=== PATIENT | female | born 1940 | race Hispanic/Latino ===

== ENCOUNTER 2016-10-18 20:26 | Observation (INO) | payer MEDICARE ==
[2016-10-18 20:33] VITALS: BMI 24.4
[2016-10-18 21:05] LABS: BASO # 0.01 K/mm3 (0.0-2.0); BASO % 0.3 % (0.0-3.0); EOS # 0.2 (0.0-0.7); EOS % 3.9 % (1.5-5.0); GRAN # 1.99 (1.4-6.5); GRAN % 51.7 % (50.0-68.0); HEMOGLOBIN 12.9 gm/dL (12.0-16.0); LYMPH # 1.2 (1.2-3.4); LYMPH % 30.6 % (22.0-35.0); MEAN CELL VOLUME 91.9 fL (80.0-105.0); MEAN CORPUSCULAR HEMOGLOBIN 32.6 pg (25.0-35.0); MEAN CORPUSCULAR HGB CONC 35.4 g/dl (31.0-37.0); MEAN PLATELET VOLUME 11.6 fl (7.0-11.0); MONO # 0.5 (0.1-0.6); MONO % 13.5 % (1.0-6.0); PLATELET COUNT 78 10^3/uL (120.0-450.0); RBC 3.96 10^6/uL (3.5-6.1); RED CELL DISTRIBUTION WIDTH 12.8 % (11.5-14.5); WHITE BLOOD COUNT 3.9 10^3/ul (4.5-11.0)
[2016-10-18 21:06] LABS: VENOUS BLOOD GAS BASE EXCESS -0.6 mmol/L (0.0-2.0); VENOUS BLOOD GAS PO2 142 mm/Hg (30-55); VENOUS BLOOD PH 7.43 (7.32-7.43)
[2016-10-18 21:44] LABS: ALB/GLOB RATIO 1.6 (1.1-1.8); ALBUMIN 3.4 g/dL (3.0-4.8); ALT/SGPT 40 U/L (7-56); AST/SGOT 24 U/L (15-39); BLOOD UREA NITROGEN 13 mg/dL (7-21); CALCIUM 9.1 mg/dL (8.4-10.5); GFR AFRICAN-AMERICAN > 60; GFR NON-AFRICAN AMERICAN > 60
--- NOTE | 2016-10-18 21:44 | ED PDOC ---
Arrival/HPI - General Chief Complaint: Medical Clearance Time Seen by Provider: 10/18/16 20:29 Historian: Patient - History of Present Illness Narrative History of Present Illness (Text): 10/18/16 20:29 Leatha Rob is a 76 year old female who presents to the emergency department for evaluation of hypotension and generalized weakness. Patient does not endorse any other complaints. Denies fever, chills, headache, chest pain, shortness of breath, or any other complaints at this time. Past Medical History - Provider Review Nursing Documentation Reviewed: Yes - Cardiac Hx Pacemaker: No - Pulmonary Hx Respiratory Disorders: No - Neurological Hx Paralysis: No - HEENT Hx HEENT Disorder: No - Renal Hx Renal Disorder: No - Hematological/Oncological Hx Blood Transfusions: No Hx Blood Transfusion Reaction: No Hx Cancer: Yes (breast) - Integumentary Hx Dermatological Disorder: No - Musculoskeletal/Rheumatological Hx Musculoskeletal Disorders: No - Gastrointestinal Hx Gastrointestinal Disorders: No - Genitourinary/Gynecological Hx Genitourinary Disorders: No - Psychiatric Hx Psychophysiologic Disorder: No Hx Substance Use: No - Surgical History Hx Mastectomy: Yes - Anesthesia Hx Anesthesia: Yes Hx Anesthesia Reactions: No Hx Malignant Hyperthermia: No Family/Social History - Physician Review Nursing Documentation Reviewed: Yes Family/Social History: No Known Family HX Smoking Status: Never Smoked Hx Alcohol Use: No Hx Substance Use: No Allergies/Home Meds Allergies/Adverse Reactions: Allergies No Known Allergies Allergy (Verified 01/14/16 08:39) Home Medications: Home Meds Medication Instructions Recorded Confirmed Dexamethasone 10 mg PO DAILY 01/14/16 10/18/16 Acyclovir [Zovirax] 200 mg PO DAILY 10/18/16 10/18/16 Lenalidomide [Revlimid] 5 mg PO DAILY 10/18/16 10/18/16 Review of Systems - Physician Review All systems were reviewed & negative as marked: Yes - Review of Systems Constitutional: Fatigue (generalized weakness ). absent: Fevers Respiratory: Normal. absent: SOB, Cough, Sputum Cardiovascular: Normal. absent: Chest Pain Gastrointestinal: absent: Abdominal Pain, Diarrhea, Nausea, Vomiting Genitourinary Female: absent: Dysuria Neurological: Normal. absent: Headache, Dizziness Physical Exam Vital Signs Reviewed: Yes Vital Signs Temp Pulse Resp BP Pulse Ox 10/19/16 02:00 79 14 127/82 99 10/19/16 01:52 98.5 F 71 19 139/72 10/19/16 00:15 84 16 162/85 H 100 10/18/16 23:37 82 16 133/75 100 10/18/16 22:59 76 14 134/70 100 10/18/16 20:34 97.8 F 80 20 124/78 99 Temperature: Afebrile Blood Pressure: Normal Pulse: Regular Respiratory Rate: Normal Appearance: Positive for: Well-Appearing, Non-Toxic, Comfortable Pain Distress: None Mental Status: Positive for: Alert and Oriented X 3 - Systems Exam Head: Present: Atraumatic, Normocephalic Pupils: Present: PERRL Conjunctiva: Present: Normal Mouth: Present: Moist Mucous Membranes Respiratory/Chest: Present: Clear to Auscultation, Good Air Exchange. No: Respiratory Distress, Accessory Muscle Use Cardiovascular: Present: Regular Rate and Rhythm, Normal S1, S2. No: Murmurs Abdomen: Present: Normal Bowel Sounds. No: Tenderness, Distention, Peritoneal Signs Upper Extremity: Present: Normal Inspection. No: Cyanosis, Edema Lower Extremity: Present: Normal Inspection. No: Edema Neurological: Present: GCS=15, CN II-XII Intact, Speech Normal, Motor Func Grossly Intact, Normal Sensory Function Skin: Present: Warm, Dry, Normal Color. No: Rashes Psychiatric: Present: Alert, Oriented x 3, Normal Insight, Normal Concentration Medical Decision Making ED Course and Treatment: 10/18/16 20:29 Impression: A 76 year old female who presents to the emergency department complaining of hypotension and weakness. Plan: -- EKG -- labs, Troponin -- Urinalysis -- Reassess and disposition Progress Notes: 10/18/16 20:41 EKG reviewed by me: Abbifib @ 81 bpm. 10/19/16 01:[address] Suarez who is aware and agrees with the plan to observe patient on telemetry for near-syncope. Accepts patient under her service. - Lab Interpretations Lab Results: 10/18/16 20:45 10/18/16 21:15 Lab Results 10/19/16 00:50: pO2 165 H, VBG pH 7.41, VBG pCO2 41.0, VBG HCO3 26.0, VBG Total CO2 27.3, VBG O2 Sat (Calc) 97.3 H, VBG Base Excess 1.2, VBG Potassium 4.0, Sodium 136.0, Chloride 108.0 H, Glucose 86, Lactate 1.6, FiO2 21.0, Venous Blood Potassium 4.0 10/18/16 21:15: Urine Color Yellow, Urine Appearance Clear, Urine pH 6.0, Ur Specific [place] 1.010, Urine Protein Negative, Urine Glucose (UA) Negative, Urine Ketones Negative, Urine Blood Small H, Urine Nitrate Negative, Urine Bilirubin Negative, Urine Urobilinogen 0.2, Ur Leukocyte Esterase Negative, Urine RBC 0 - 2, Urine WBC 0 - 2, Ur Epithelial Cells 0 - 2 10/18/16 21:15: Sodium 134, Chloride 104, Potassium 4.2, Carbon Dioxide 22, Anion Gap 12, BUN 13, Creatinine 0.7, Est GFR ( Amer) > 60, Est GFR (Non- Af Amer) > 60, Random Glucose 88, Calcium 9.1, Total Bilirubin 1.1, AST 24, ALT 40, Alkaline Phosphatase 55, Troponin I < 0.01, Total Protein 5.5 L, Albumin 3.4 , Globulin 2.1, Albumin/Globulin Ratio 1.6 10/18/16 20:45: pO2 142 H, VBG pH 7.43, VBG pCO2 35.0 L, VBG HCO3 23.2, VBG Total CO2 24.3, VBG O2 Sat (Calc) 96.8 H, VBG Base Excess -0.6 L, VBG Potassium 5.6 H, Sodium 129.0 L, Chloride 105.0, Glucose 108 H, Lactate 2.0, FiO2 21.0, Venous Blood Potassium 5.6 H 10/18/16 20:45: WBC 3.9 L, RBC 3.96, Hgb 12.9, Hct 36.4, MCV 91.9, MCH 32.6, MCHC 35.4, RDW 12.8, Plt Count 78 L, MPV 11.6 H, Gran % 51.7, Lymph % (Auto) 30.6, [place] % (Auto) 13.5 H, Eos % (Auto) 3.9, Baso % (Auto) 0.3, Gran # 1.99, Lymph # 1.2, [place] # 0.5, Eos # 0.2, Baso # 0.01 I have reviewed the lab results: Yes - RAD Interpretation Radiology Orders: 10/18/16 22:21 HEAD W/O CONTRAST [CT] Stat 10/19/16 00:50 CHEST PORTABLE [RAD] Stat - EKG Interpretation Interpreted by ED Physician: Yes Type: 12 lead EKG - Medication Orders Current Medication Orders: Discontinued Medications Acetaminophen (Tylenol 325mg Tab) 650 mg PO Q4H PRN PRN Reason: Pain, Mild (1-3) Dexamethasone (Decadron) 10 mg PO DAILY [facility] Last Admin: 10/19/16 09:31 Dose: 10 mg Lenalidomide [ Revlimid] 5 Mg ( Home Med) 5 mg PO DAILY [facility] Last Admin: 10/19/16 09:36 Dose: - Scribe Statement The provider has reviewed the documentation as recorded by the Wanda Cruz Provider Attestation: Provider Scribe Attestation: All medical record entries made by the Scribe were at my direction and personally dictated by me. I have reviewed the chart and agree that the record accurately reflects my personal performance of the history, physical exam, medical decision making, and the department course for this patient. I have also personally directed, reviewed, and agree with the discharge instructions and disposition. Disposition/Present on Arrival - Present on Arrival Any Indicators Present on Arrival: No History of DVT/PE: No History of Uncontrolled Diabetes: No Urinary Catheter: No History of Decub. Ulcer: No History Surgical Site Infection Following: None - Disposition Have Diagnosis and Disposition been Completed?: Yes Diagnosis: Near syncope Disposition: HOSPITALIZED Disposition Time: 01:00 Condition: FAIR
[2016-10-18 22:00] LABS: TROPONIN I < 0.01 ng/mL
[2016-10-18 22:27] LABS: URINE BILIRUBIN NEGATIVE (NEGATIVE); URINE BLOOD SMALL (NEGATIVE); URINE GLUCOSE (UA) NEGATIVE (NEGATIVE); URINE LEUKOCYTE ESTERASE NEGATIVE Leu/uL (NEGATIVE); URINE NITRATE NEGATIVE (NEGATIVE); URINE PROTEIN NEGATIVE mg/dL (<30 mg/dL); URINE UROBILINOGEN 0.2 E.U./dL (<1 E.U./dL)
[2016-10-18 22:38] LABS: URINE APPEARANCE CLEAR (CLEAR); URINE COLOR YELLOW (YELLOW)
[2016-10-18 22:54] LABS: URINE EPITHELIAL CELLS 0 - 2 /hpf (0-5); URINE RBC 0 - 2 /hpf (0-2); URINE WBC 0 - 2 /hpf (0-6)
--- NOTE | 2016-10-19 00:10 | CT ---
EXAM: CT Head Without Intravenous Contrast CLINICAL HISTORY: 76 years old, female; Signs and symptoms; Weakness, extremity TECHNIQUE: Axial computed tomography images of the head/brain without intravenous contrast. This CT exam was performed using one or more of the following dose reduction techniques: automated exposure control, adjustment of the mA and/or kV according to patient size, and/or use of iterative reconstruction technique. COMPARISON: No relevant prior studies available. FINDINGS: Brain: No acute intracranial hemorrhage. Age-appropriate periventricular white matter disease. No edema. Ventricles: Age-appropriate ventriculomegaly. Bones: No acute displaced fracture. Sinuses: Unremarkable as visualized. No acute sinusitis. Mastoid air cells: Unremarkable as visualized. No mastoid effusion. IMPRESSION: No acute intracranial hemorrhage, or suspicious mass effect.
[2016-10-19 01:09] LABS: VENOUS BLOOD GAS BASE EXCESS 1.2 mmol/L (0.0-2.0); VENOUS BLOOD GAS PO2 165 mm/Hg (30-55); VENOUS BLOOD PH 7.41 (7.32-7.43)
--- NOTE | 2016-10-19 07:38 | RAD ---
HISTORY: cp COMPARISON: No prior. FINDINGS: LUNGS: No active pulmonary disease. PLEURA: No significant pleural effusion identified, no pneumothorax apparent. CARDIOVASCULAR: Normal. OSSEOUS STRUCTURES: No significant abnormalities. VISUALIZED UPPER ABDOMEN: Normal. OTHER FINDINGS: None. IMPRESSION: No active disease.
[2016-10-19 08:35] VITALS: BP 149/84; PULSE 76; RESP 18; TEMP 97.6; O2SAT 97
[2016-10-19 09:08] LABS: HDL CHOLESTEROL 53 mg/dL (29-60); LDL CHOLESTEROL 76 mg/dL (0-129)
--- NOTE | 2016-10-19 09:15 | CP.PCM.CON ---
History of Present Illness - History of Present Illness History of Present Illness: Asked to see pt, But ipt sees dr Norris, so I will cancel consult for us, and order consult for Dr. Saldaña, and will notify dr. syed as well. Past Patient History - Past Social History Smoking Status: Never Smoked - CARDIAC Hx Cardiac Disorders: Yes Hx Angina: Yes Other/Comment: A-Fib - PULMONARY Hx Respiratory Disorders: No - NEUROLOGICAL Hx Neurological Disorder: No - HEENT Hx HEENT Problems: No - RENAL Hx Chronic Kidney Disease: No - ENDOCRINE/METABOLIC Hx Endocrine Disorders: No - HEMATOLOGICAL/ONCOLOGICAL Hx Blood Disorders: Yes Hx Cancer: Yes - INTEGUMENTARY Hx Dermatological Problems: No - MUSCULOSKELETAL/RHEUMATOLOGICAL Hx Musculoskeletal Disorders: No Hx Falls: No - GASTROINTESTINAL Hx Gastrointestinal Disorders: No - GENITOURINARY/GYNECOLOGICAL Hx Genitourinary Disorders: No - PSYCHIATRIC Hx Psychophysiologic Disorder: No - SURGICAL HISTORY Hx Mastectomy: Yes (right) - ANESTHESIA Hx Anesthesia: Yes Hx Anesthesia Reactions: No Hx Malignant Hyperthermia: No Meds Allergies/Adverse Reactions: Allergies Allergy/AdvReac Type Severity Reaction Status Date / Time No Known Allergies Allergy Verified 01/14/16 08:39 - Medications Medications: Current Medications Acetaminophen (Tylenol 325mg Tab) 650 mg PO Q4H PRN PRN Reason: Pain, Mild (1-3) Dexamethasone (Decadron) 10 mg PO DAILY [facility] Lenalidomide [ Revlimid] 5 Mg ( Home Med) 5 mg PO DAILY [facility] Results - Vital Signs Recent Vital Signs: Last Vital Signs Temp 97.6 F 10/19/16 08:34 Pulse 76 10/19/16 08:34 Resp 18 10/19/16 08:34 BP 149/84 10/19/16 08:34 Pulse Ox 97 10/19/16 08:34 - Labs Result Diagrams: 10/18/16 20:45 10/18/16 21:15 Labs: Laboratory Results - last 24 hr 10/19/16 08:50 Triglycerides 213 H Cholesterol 172 LDL Cholesterol Direct 76 HDL Cholesterol 53
[2016-10-19 09:30] LABS: FREE T4 1.26 ng/dL (0.78-2.19)
[2016-10-19] MEDS ORDERED: LENALIDOMIDE 5 MG PO SCH (10:00)
--- NOTE | 2016-10-19 12:09 | CP.PCM.CON ---
<Karma Tomlinson - Last Filed: 10/19/16 15:44> History of Present Illness - History of Present Illness History of Present Illness: PGY-2 neurology consult note for Dr Tenorio. Reason for consult: near syncope. Patient is a 76 y/o with pmh of b/l breast cancer s/p right breast mastectomy, s /p chemo whom presented with episode of hypotension at home and neurology is being consulted for possible near syncope. As per patient, she's not sure how low her BP was, her home service technician told her her BP was low. Patient states prior to this she has been feeling tired, and dizzy especially when she gets up from seating position. Patient denies falling, denies loc, denies lightheadedness, denies photophobia, denies feeling like the room is spinning. Patient denies headache, sob, or cp. Denies h/o htn, CAD or cva. Patient is currently able to ambulate without dizziness. In the ED patient had CT head w/o contrast with no acute ischemic changes. Patient's BP was also normal int he ED. EKG revealed rate controlled afib. PMH: As mentioned above PSH: Breast mastectomy. Social: Denies alcohol, tobacco and illicit drug use. Review of Systems - Review of Systems All systems: reviewed and no additional remarkable complaints except Review of Systems: As mentioned in HPI. Past Patient History - Past Social History Smoking Status: Never Smoked Alcohol: None Drugs: Denies - CARDIAC Hx Cardiac Disorders: Yes Hx Angina: Yes Other/Comment: A-Fib - PULMONARY Hx Respiratory Disorders: No - NEUROLOGICAL Hx Neurological Disorder: No - HEENT Hx HEENT Problems: No - RENAL Hx Chronic Kidney Disease: No - ENDOCRINE/METABOLIC Hx Endocrine Disorders: No - HEMATOLOGICAL/ONCOLOGICAL Hx Blood Disorders: Yes Hx Cancer: Yes - INTEGUMENTARY Hx Dermatological Problems: No - MUSCULOSKELETAL/RHEUMATOLOGICAL Hx Musculoskeletal Disorders: No Hx Falls: No - GASTROINTESTINAL Hx Gastrointestinal Disorders: No - GENITOURINARY/GYNECOLOGICAL Hx Genitourinary Disorders: No - PSYCHIATRIC Hx Psychophysiologic Disorder: No - SURGICAL HISTORY Hx Mastectomy: Yes (right) - ANESTHESIA Hx Anesthesia: Yes Hx Anesthesia Reactions: No Hx Malignant Hyperthermia: No Meds Allergies/Adverse Reactions: Allergies Allergy/AdvReac Type Severity Reaction Status Date / Time No Known Allergies Allergy Verified 01/14/16 08:39 - Medications Medications: Current Medications Acetaminophen (Tylenol 325mg Tab) 650 mg PO Q4H PRN PRN Reason: Pain, Mild (1-3) Dexamethasone (Decadron) 10 mg PO DAILY [facility] Last Admin: 10/19/16 09:31 Dose: 10 mg Lenalidomide [ Revlimid] 5 Mg ( Home Med) 5 mg PO DAILY [facility] Last Admin: 10/19/16 09:36 Dose: Not Given Physical Exam - Constitutional Appears: No Acute Distress, Cachectic - Head Exam Head Exam: ATRAUMATIC, NORMAL INSPECTION, NORMOCEPHALIC - Eye Exam Eye Exam: EOMI, Normal appearance, PERRL. absent: Scleral icterus Pupil Exam: NORMAL ACCOMODATION - ENT Exam ENT Exam: Mucous Membranes Moist - Neck Exam Neck exam: Positive for: Normal Inspection. Negative for: Tenderness - Respiratory Exam Respiratory Exam: Clear to Auscultation Bilateral, NORMAL BREATHING PATTERN. absent: Rales, Rhonchi, Wheezes, Stridor - Cardiovascular Exam Cardiovascular Exam: Irregular Rhythm, +S1, +S2. absent: Systolic Murmur - GI/Abdominal Exam GI & Abdominal Exam: Normal Bowel Sounds, Soft. absent: Tenderness - Extremities Exam Extremities exam: Positive for: normal inspection. Negative for: pedal edema - Back Exam Back exam: NORMAL INSPECTION - Neurological Exam Neurological exam: Alert, CN II-XII Intact, Normal Gait, Oriented x3, Reflexes Normal Additional comments: Mental status: Patient is a&ox3, Speaking in full sentences. Affect is flat. CNII-CNXII- [place], EMOI, no nystagamus, no ptosis, sensation intact to light touch. [place] muscles strong symmetrically, no facial asymmetry. Tongue protrude midline, no atrophy or fasciculation. Sensory: fine touch intact, pp temperature. Motor exam: b/l upper and lower extremities 5/5, no tremors and no muscle rigidity. normal gait, Good muscle tone. Reflex: deep tendon reflex were plus 2 with flexor plantar response on the LE. - Psychiatric Exam Psychiatric exam: Normal Affect, Normal Mood - Skin Skin Exam: Dry, Normal Color, Warm Results - Vital Signs Recent Vital Signs: Last Vital Signs Temp 97.6 F 10/19/16 08:34 Pulse 76 10/19/16 08:34 Resp 18 10/19/16 08:34 BP 149/84 10/19/16 08:34 Pulse Ox 97 10/19/16 08:34 - Labs Result Diagrams: 10/18/16 20:45 10/18/16 21:15 Labs: Laboratory Results - last 24 hr 10/19/16 10/19/16 08:50 08:50 Triglycerides 213 H Cholesterol 172 LDL Cholesterol Direct 76 HDL Cholesterol 53 Free T4 1.26 TSH 3rd Generation 1.34 Assessment & Plan - Assessment and Plan (Free Text) Assessment: Patient is a 76 y/o with pmh of b/l breast cancer s/p right breast mastectomy, s /p chemo whom presented with episode of hypotension at home and neurology is being consulted for possible near syncope. Impression: possible near syncopal episode 2nd to transient drop in BP. Plan: - Consider PT - Avoid sudden movement - encourage hydration - f/u with cardiology - rec orthostatic vital signs. - Thank you for consulting Dr Tenorio. Patient seen,examined, case discussed with Dr Tenorio. - Date & Time Date: 10/19/16 Time: 11:25 <Casey Tenorio - Last Filed: 10/19/16 16:08> Meds - Medications Medications: Current Medications Acetaminophen (Tylenol 325mg Tab) 650 mg PO Q4H PRN PRN Reason: Pain, Mild (1-3) Dexamethasone (Decadron) 10 mg PO DAILY [facility] Last Admin: 10/19/16 09:31 Dose: 10 mg Lenalidomide [ Revlimid] 5 Mg ( Home Med) 5 mg PO DAILY [facility] Last Admin: 10/19/16 09:36 Dose: Not Given Results - Vital Signs Recent Vital Signs: Last Vital Signs Temp 97.6 F 10/19/16 08:34 Pulse 76 10/19/16 08:34 Resp 18 10/19/16 08:34 BP 149/84 10/19/16 08:34 Pulse Ox 97 10/19/16 08:34 - Labs Result Diagrams: 10/18/16 20:45 10/18/16 21:15 Labs: Laboratory Results - last 24 hr 10/19/16 10/19/16 08:50 08:50 Triglycerides 213 H Cholesterol 172 LDL Cholesterol Direct 76 HDL Cholesterol 53 Free T4 1.26 TSH 3rd Generation 1.34 Attending/Attestation - Attestation I have fully participated in the care of the patient.: Yes I have reviewed all pertinent clinical information: Yes
--- NOTE | 2016-10-19 12:43 | CARD ---
APPROVED REPORT EKG Measurement Heart [id number] <Conclusion> Atrial fibrillation Abnormal ECG
--- NOTE | 2016-10-19 19:35 | US ---
PROCEDURE: Bilateral carotid artery duplex ultrasound HISTORY: Carotid stenosis syncope PHYSICIAN(S): Pablo Calderón MD. TECHNIQUE: Duplex sonography and color-flow Doppler were used to evaluate the carotid bifurcations and limited segments of the vertebral arteries bilaterally. FINDINGS: There is mild smooth heterogeneous plaque noted at the carotid bifurcations bilaterally. The peak systolic velocity in the proximal right internal carotid artery is 76 cm/sec. This corresponds to a 20 to 39% proximal right ICA stenosis. Normal systolic velocities are noted in the proximal right external carotid artery. There is antegrade flow in the right vertebral artery. The peak systolic velocity in the proximal left internal carotid artery is 71 cm/sec. This corresponds to a 20 to 39% proximal left ICA stenosis. Normal systolic velocities are noted in the proximal left external carotid artery. There is antegrade flow in the left vertebral artery. IMPRESSION: 1. Bilateral 20-39% proximal ICA stenoses. 2. Antegrade flow in both vertebral arteries.
== END 2016-10-19 16:33 | disposition home or self-care (01) ==
LOC: ED 20:26 → ERH 10-19 01:18 → 3RNO 10-19 02:25
PROVIDERS: ADMIT Internal Medicine; ATTEND Internal Medicine
DX: I95.9 Hypotension, unspecified (principal); R55 Syncope and collapse; I48.91 Unspecified atrial fibrillation; R53.1 Weakness; Z90.11 Acquired absence of right breast and nipple; Z85.3 Personal history of malignant neoplasm of breast
CPT/HCPCS: 36415; 70450; 71010; 80053; 80061; 81001; 82803; 84439; 84443; 84484; 85025; 93005; 93880; 99285; G0378; J8540